=== PATIENT | male | born 1970 | race African-American/Black ===

== ENCOUNTER 2018-01-08 04:13 | Emergency (ER) | payer MEDICAID ==
[~2018-01-08] VITALS: Ht 188 cm; Wt 91.0 kg
[2018-01-08 05:53] LABS: BASOPHILS % 0.7 % (0.0-2.0); EOSINOPHILS % 0.6 % (0.0-5.0); HEMATOCRIT. 36.9 % (42.0-52.0); LYMPHOCYTES % 14.7 % (20.0-50.0); MEAN CORPUSCULAR HEMOGLOBIN 30.3 pg (28.0-32.0); MEAN CORPUSCULAR VOLUME 92.8 fL (80.0-94.0); MEAN PLATELET VOLUME 7.1 fl (7.4-10.4); MONOCYTES % 7.3 % (2.0-8.0); NEUTROPHILS % 76.7 % (40.0-76.0); PLATELET 462 x1000/uL (130-400); RED BLOOD CELL COUNT 3.97 mill/uL (4.7-6.1); RED CELL DISTRIBUTION WIDTH 13.7 % (11.6-14.6)
[2018-01-08 06:06] LABS: CHLORIDE 105 mEq/L (98-107)
[2018-01-08] MEDS ORDERED: KETOROLAC 60MG/2ML VIAL IM ONE (06:45)
[2018-01-08 07:10] VITALS: BP 139/77
[2018-01-10] MEDS ORDERED: ACET650S25 GT (03:46)
[2018-01-10] MEDS ORDERED: ELVI1TAB3 (03:46)
[2018-01-10] MEDS ORDERED: FLUO20TA29 (03:46)
[2018-01-10] MEDS ORDERED: GABA-290 PO (03:46)
[2018-01-10] MEDS ORDERED: HYDR-4009 PO (03:46)
[2018-01-11] MEDS ORDERED: GABA800T97 PO (19:58)
== END 2018-01-08 08:31 | disposition home or self-care (01) ==
LOC: ER 04:13
DX: S52.024A Nondisplaced fracture of olecranon process without intraarticular extension of right ulna, initial encounter for closed fracture (principal); M25.421 Effusion, right elbow; M25.532 Pain in left wrist; M19.90 Unspecified osteoarthritis, unspecified site; F32.9 Major depressive disorder, single episode, unspecified; F17.200 Nicotine dependence, unspecified, uncomplicated; M18.9 Osteoarthritis of first carpometacarpal joint, unspecified; X58.XXXA Exposure to other specified factors, initial encounter; Y93.89 Activity, other specified; Y92.098 Other place in other non-institutional residence as the place of occurrence of the external cause
CPT/HCPCS: 29105; 36415; 73080; 73110; 80053; 84550; 85025; 85651; 96372; 99285; J1885; Z7610; A4565

== ENCOUNTER 2018-02-08 15:27 | Emergency (ER) | payer MEDICAID ==
[~2018-02-08] VITALS: Ht 188 cm; Wt 80.0 kg
[~2018-02-08 15:27] MED LIST: ACET650S25 GT; ELVI1TAB3; FLUO20TA29; GABA800T97 PO; HYDR-4009 PO
[2018-02-08 15:48] VITALS: BP 134/87
[2018-02-08 16:21] LABS: CLARITY URINE CLEAR (CLEAR); COLOR URINE YELLOW (YELLOW); KETONES URINE NEGATIVE (NEGATIVE); LEUKOCYTE ESTERASE URINE NEGATIVE (NEGATIVE); NITRITE URINE NEGATIVE (NEGATIVE); OCCULT BLOOD URINE NEGATIVE (NEGATIVE); PROTEIN URINE NEGATIVE (NEGATIVE); SPECIFIC GRAVITY URINE 1.018 (1.005-1.030)
== END 2018-02-08 20:05 | disposition left against medical advice (07) ==
LOC: ER 16:24
DX: R42 Dizziness and giddiness (principal); R53.1 Weakness; F17.200 Nicotine dependence, unspecified, uncomplicated; F32.9 Major depressive disorder, single episode, unspecified
CPT/HCPCS: 81003; 99283

== ENCOUNTER 2019-04-10 16:59 | Inpatient (IN) | payer MEDICAID ==
[~2019-04-10] VITALS: Ht 188 cm; Wt 89.9 kg
[2019-04-10] MEDS ORDERED: SODIUM CHLORIDE 0.9% 1,000 ML IV ONE (19:03)
[2019-04-10] MEDS ORDERED: KETOROLAC 30MG/ML VIAL IV STA (19:03)
[2019-04-10] MEDS ORDERED: ONDANSETRON HCL 4MG/2ML INJ IV STA (19:03)
[2019-04-10] MEDS ORDERED: MORPHINE SULFATE 4 MG/ML CPJ (NOT FOR IM USE) IV STA (19:03)
[2019-04-10] MEDS ORDERED: PIPERACILLIN/TAZ 3.375G PREMIX 50 ML IV ONE (19:15)
[2019-04-10] MEDS ORDERED: VANCOMYCIN 1 G PREMIX 200 ML IV ONE (19:15)
[2019-04-10 19:41] LABS: BASOPHILS % 2.3 % (0.0-2.0); EOSINOPHILS % 5.3 % (0.0-5.0); HEMATOCRIT. 41.8 % (42.0-52.0); HEMOGLOBIN. 13.7 g/dL (14.0-18.0); MEAN CORPUSCULAR HEMOGLOBIN 29.8 pg (28.0-32.0); MEAN CORPUSCULAR VOLUME 90.4 fL (80.0-94.0); MEAN PLATELET VOLUME 7.7 fl (7.4-10.4); MONOCYTES % 7.7 % (2.0-8.0); NEUTROPHILS % 39.7 % (40.0-76.0); PLATELET 354 x1000/uL (130-400); RED BLOOD CELL COUNT 4.62 mill/uL (4.7-6.1); RED CELL DISTRIBUTION WIDTH 13.2 % (11.6-14.6)
[2019-04-10 19:46] LABS: CHLORIDE 107 mEq/L (98-107)
[2019-04-10 19:48] LABS: PROTHROMBIN TIME 10.2 sec (9.6-11.0)
[2019-04-10] MEDS ORDERED: DEXAMETHASONE 10 MG/ML VIAL IV ONE (21:30)
[2019-04-10] MEDS ORDERED: HYDROCODONE/ACETAMINOPHEN 5/325MG TABLET PO PRN (21:45)
[2019-04-10] MEDS ORDERED: ONDANSETRON HCL 4MG/2ML INJ IV PRN (21:45)
[2019-04-10] MEDS ORDERED: ACETAMINOPHEN 325MG TABLET PO PRN (21:45)
[2019-04-10] MEDS ORDERED: CLONIDINE 0.1MG TABLET PO PRN (21:45)
[2019-04-11 02:26] LABS: CLARITY URINE CLEAR (CLEAR); COLOR URINE YELLOW (YELLOW); KETONES URINE NEGATIVE (NEGATIVE); LEUKOCYTE ESTERASE URINE NEGATIVE (NEGATIVE); NITRITE URINE NEGATIVE (NEGATIVE); OCCULT BLOOD URINE NEGATIVE (NEGATIVE); PH URINE 6.5 (4.5-8.0); PROTEIN URINE NEGATIVE (NEGATIVE); SPECIFIC GRAVITY URINE 1.021 (1.005-1.030)
[2019-04-11 02:40] LABS: *AMPHETAMINES SCREEN URINE NEGATIVE (NEGATIVE); *BARBITURATES SCREEN URINE NEGATIVE (NEGATIVE)
[2019-04-11 02:41] LABS: *BENZODIAZEPINES SCREEN URINE NEGATIVE (NEGATIVE); *COCAINE SCREEN URINE NEGATIVE (NEGATIVE); OPIATES URINE SCREEN PRESUMTIVE POSITIVE (NEGATIVE); PHENCYCLIDINE URINE SCREEN NEGATIVE (NEGATIVE)
[2019-04-11 02:42] LABS: CANNABINOID URINE SCREEN NEGATIVE (NEGATIVE)
[2019-04-11 02:49] LABS: METHADONE URINE SCREEN NEGATIVE (NEGATIVE)
[2019-04-11] MEDS ORDERED: PIPERACILLIN/TAZ 3.375G PREMIX 50 ML IV SCH ×2 (05:00→14:00)
[2019-04-11] MEDS ORDERED: MORPHINE SULFATE 2 MG/ML CPJ (NOT FOR IM USE) IV PRN (05:03)
[2019-04-11 05:12] LABS: BASOPHILS % 0.4 % (0.0-2.0); EOSINOPHILS % 0.2 % (0.0-5.0); HEMATOCRIT. 40.7 % (42.0-52.0); HEMOGLOBIN. 13.5 g/dL (14.0-18.0); LYMPHOCYTES % 19.2 % (20.0-50.0); MEAN CORPUSCULAR VOLUME 90.3 fL (80.0-94.0); MEAN PLATELET VOLUME 7.3 fl (7.4-10.4); MONOCYTES % 0.7 % (2.0-8.0); NEUTROPHILS % 79.5 % (40.0-76.0); PLATELET 336 x1000/uL (130-400); RED CELL DISTRIBUTION WIDTH 12.9 % (11.6-14.6)
[2019-04-11 05:17] LABS: CHLORIDE 109 mEq/L (98-107)
[2019-04-11 10:00] VITALS: BP 152/72
[2019-04-11] MEDS: HYDROCODONE/ACETAMINOPHEN 10/325MG TABLET PO PRN (10:30)
[2019-04-11] MEDS: VANCOMYCIN 1500MG in DEXTROSE 5% WATER 250ML IV SCH ×2 (11:03→18:14)
[2019-04-11 12:00] VITALS: BP 173/93
[2019-04-11] MEDS ORDERED: GABA-290 MT (12:00)
[2019-04-11] MEDS ORDERED: ZOLP5TAB8 MT (12:00)
[2019-04-11] MEDS ORDERED: FURO-151 MT (12:00)
[2019-04-11] MEDS ORDERED: AMLO2.5T45 MT (12:00)
[2019-04-11] MEDS ORDERED: TIZA4CAP6 MT (12:01)
[2019-04-11] MEDS ORDERED: HYDR12.54 MT (12:03)
[2019-04-11] MEDS: TIZANIDINE HCL 4MG TABLET PO PRN (13:13)
[2019-04-11] MEDS ORDERED: MEDICATION NOT ON FORMULARY EA (Amlodipine Besylate 1 TAB) MT SCH (14:15)
[2019-04-11] MEDS ORDERED: GABAPENTIN MT SCH (14:15)
[2019-04-11] MEDS ORDERED: MEDICATION NOT ON FORMULARY EA (Furosemide (Lasix) 1 TAB) MT SCH (14:15)
[2019-04-11] MEDS ORDERED: MEDICATION NOT ON FORMULARY EA (Zolpidem Tartrate 1 TAB) MT PRN (14:15)
[2019-04-11] MEDS ORDERED: LORAZEPAM 2MG/ML CPJ IV NR (14:15)
[2019-04-11] MEDS ORDERED: MEDICATION NOT ON FORMULARY EA (Hydrochlorothiazide 1 TAB) MT SCH (14:15)
[2019-04-11] MEDS ORDERED: MORPHINE SULFATE 4 MG/ML CPJ (NOT FOR IM USE) IV PRN (14:30)
[2019-04-11] MEDS ORDERED: AMLODIPINE 2.5MG TABLET PO SCH (14:30)
[2019-04-11] MEDS: HYDROCHLOROTHIAZIDE 12.5MG CAPSULE PO SCH (15:15)
[2019-04-11 16:00] VITALS: BP 128/69
[2019-04-11] MEDS: FUROSEMIDE 40MG TABLET PO SCH (16:00)
[2019-04-11] MEDS: PIPERACILLIN/TAZ 3.375G PREMIX 50 ML IV SCH ×2 (17:32→20:22)
[2019-04-11] MEDS: GABAPENTIN 300MG CAPSULE PO SCH (17:57)
[2019-04-11] MEDS: NICOTINE 21MG PATCH TD SCH (18:16)
[2019-04-11 20:00] VITALS: BP 133/74
[2019-04-11] MEDS: AMLODIPINE 5MG TABLET PO SCH (20:23)
[2019-04-11] MEDS: GENVOYA PO SCH (20:32)
[2019-04-11] MEDS: COBICISTAT PO SCH (20:32)
[2019-04-11] MEDS: EMTRICITABINE PO SCH (20:32)
[2019-04-11] MEDS: TENOFOVIR PO SCH (20:32)
[2019-04-11] MEDS ORDERED: ZOLPIDEM TARTRATE 5MG TABLET PO PRN ×2 (21:00)
[2019-04-11] MEDS: MORPHINE SULFATE 4 MG/ML CPJ (NOT FOR IM USE) IV PRN (21:08)
[2019-04-12] VITALS: BP 130/67
[2019-04-12] MEDS: HYDROCODONE/ACETAMINOPHEN 10/325MG TABLET PO PRN ×3 (00:29→14:39)
[2019-04-12] MEDS: VANCOMYCIN 1500MG in DEXTROSE 5% WATER 250ML IV SCH ×3 (01:25→09:00)
[2019-04-12] MEDS: PIPERACILLIN/TAZ 3.375G PREMIX 50 ML IV SCH ×3 (03:45→08:08)
[2019-04-12] MEDS: MORPHINE SULFATE 4 MG/ML CPJ (NOT FOR IM USE) IV PRN ×3 (03:46→13:02)
[2019-04-12 04:00] VITALS: BP 112/58
[2019-04-12] MEDS: TIZANIDINE HCL 4MG TABLET PO PRN (05:41)
[2019-04-12 06:20] LABS: BASOPHILS % 0.1 % (0.0-2.0); EOSINOPHILS % 0.3 % (0.0-5.0); HEMOGLOBIN. 13.1 g/dL (14.0-18.0); LYMPHOCYTES % 18.3 % (20.0-50.0); MEAN CORPUSCULAR HEMOGLOBIN 29.6 pg (28.0-32.0); MEAN CORPUSCULAR VOLUME 90.6 fL (80.0-94.0); MEAN PLATELET VOLUME 8.1 fl (7.4-10.4); MONOCYTES % 5.3 % (2.0-8.0); PLATELET 365 x1000/uL (130-400); RED BLOOD CELL COUNT 4.42 mill/uL (4.7-6.1); RED CELL DISTRIBUTION WIDTH 13.1 % (11.6-14.6)
[2019-04-12 06:26] LABS: CHLORIDE 106 mEq/L (98-107)
[2019-04-12 08:00] VITALS: BP 118/70
[2019-04-12] MEDS: NICOTINE 21MG PATCH TD SCH (08:07)
[2019-04-12] MEDS: FUROSEMIDE 40MG TABLET PO SCH (08:07)
[2019-04-12] MEDS: HYDROCHLOROTHIAZIDE 12.5MG CAPSULE PO SCH (08:07)
[2019-04-12] MEDS: GABAPENTIN 300MG CAPSULE PO SCH ×2 (08:07→14:32)
[2019-04-12] MEDS: TENOFOVIR PO SCH (08:08)
[2019-04-12] MEDS: EMTRICITABINE PO SCH (08:08)
[2019-04-12] MEDS: AMLODIPINE 5MG TABLET PO SCH (08:08)
[2019-04-12] MEDS: GENVOYA PO SCH (08:08)
[2019-04-12] MEDS: COBICISTAT PO SCH (08:08)
[2019-04-12] MEDS ORDERED: NON FORMULARY PATIENT HOME MED PO SCH (09:00)
[2019-04-12] MEDS ORDERED: MEDICATION NOT ON FORMULARY EA (Hydrocodone Bit/Acetaminophen (Hydrocodon-Acetaminophn 1 PO SCH (09:00)
[2019-04-12] MEDS ORDERED: TIZANIDINE HCL MT SCH (09:00)
[2019-04-12 09:06] LABS: % CD 4 POS. LYMPHOCYTES 17.3 % (30.8-58.5); % CD 8 POS. LYMPH 46.3 % (12.0-35.5); ABSOLUTE CD 3 732 /uL (622-2402); ABSOLUTE CD 4 HELPER 208 /uL (359-1519); ABSOLUTE CD 8 SUPPRESSOR 556 /uL (109-897); ABSOLUTE LYMPHOCYTES 1.2 x10E3/uL (0.7-3.1); ABSOLUTE NEUTROPHILS 4.7 x10E3/uL (1.4-7.0); BASOPHILS 0 % (Not Estab.); CD4/CD8 RATIO 0.37 (0.92-3.72); HEMATOCRIT 41.3 % (37.5-51.0); HEMOGLOBIN 13.5 g/dL (13.0-17.7); IMMATURE GRANULOCYTES 0 % (Not Estab.); LYMPHOCYTES 20 % (Not Estab.); MEAN CORPUSCULAR HEMOGLOBIN 29.9 pg (26.6-33.0); MEAN CORPUSCULAR HGB CONC. 32.7 g/dL (31.5-35.7); MEAN CORPUSCULAR VOLUME 92 fL (79-97); MONOCYTES 1 % (Not Estab.); NEUTROPHILS 79 % (Not Estab.); PLATELETS 367 x10E3/uL (150-379); RBC 4.51 x10E6/uL (4.14-5.80); RED CELL DISTRIBUTION WIDTH 12.9 % (12.3-15.4)
[2019-04-12 12:00] VITALS: BP 103/73
[2019-04-12] MEDS ORDERED: VANCOMYCIN 1 G PREMIX 200 ML IV SCH (14:00)
[2019-04-12 14:59] VITALS: BP 103/73
== END 2019-04-12 15:00 | disposition home or self-care (01) | DRG 347 ==
LOC: ER 17:28 → 5WST 21:21 → EDBEDREQTM 21:28 → EDBEDREQ 21:28 → EDBEDREQSVC 21:29 → ENRESERV 04-11 07:31
PROVIDERS: ADMIT Internal Medicine; ATTEND Internal Medicine
DX: M48.061 Spinal stenosis, lumbar region without neurogenic claudication (principal); B20 Human immunodeficiency virus [HIV] disease; M46.26 Osteomyelitis of vertebra, lumbar region; R65.10 Systemic inflammatory response syndrome (SIRS) of non-infectious origin without acute organ dysfunction; M48.02 Spinal stenosis, cervical region; G62.9 Polyneuropathy, unspecified; M48.04 Spinal stenosis, thoracic region; M51.27 Other intervertebral disc displacement, lumbosacral region; M51.36 Other intervertebral disc degeneration, lumbar region; F32.9 Major depressive disorder, single episode, unspecified; M19.90 Unspecified osteoarthritis, unspecified site; I10 Essential (primary) hypertension; M51.26 Other intervertebral disc displacement, lumbar region; F17.210 Nicotine dependence, cigarettes, uncomplicated
CPT/HCPCS: 36415; 71045; 72148; 80048; 80202; 80305; 83605; 84145; 84484; 85651; 86359; 86360; 93005; 96365; 96367; 96375; 96376; 97162; 99285; J1100; J1885; J2060; J2270; J2405; J2543; J3370; J7030; J7040; J7060

== ENCOUNTER 2019-10-08 17:25 | Emergency (ER) | payer MEDICAID ==
[~2019-10-08] VITALS: Ht 188 cm; Wt 89.0 kg
[~2019-10-08 17:25] MED LIST changes: -ACET650S25 GT; +AMLO2.5T45 MT; -FLUO20TA29; +FURO-151 MT; +GABA800T97 MT; -GABA800T97 PO; +HYDR12.54 MT; +IBUP-1653 PO; +PROSOL IH; +TIZA4CAP6 MT; +ZOLP5TAB8 MT
[2019-10-08] MEDS ORDERED: KETOROLAC 60MG/2ML VIAL IM ONE (18:30)
[2019-10-08 18:45] VITALS: BP 132/63
== END 2019-10-08 18:46 | disposition home or self-care (01) ==
LOC: ER 17:25
DX: M54.5 Low back pain (principal)
CPT/HCPCS: 96372; 99283; J1885; Z7610

== ENCOUNTER 2019-10-30 10:10 | Inpatient (IN) | payer MEDICAID ==
[~2019-10-30] VITALS: Ht 188 cm; Wt 87.1 kg
[2019-10-30 13:13] LABS: BASOPHILS % 1.9 % (0.0-2.0); EOSINOPHILS % 3.4 % (0.0-5.0); HEMATOCRIT. 41.4 % (42.0-52.0); LYMPHOCYTES % 28.4 % (20.0-50.0); MEAN CORPUSCULAR HEMOGLOBIN 30.2 pg (28.0-32.0); MEAN CORPUSCULAR VOLUME 89.3 fL (80.0-94.0); MEAN PLATELET VOLUME 7.5 fl (7.4-10.4); MONOCYTES % 7.2 % (2.0-8.0); NEUTROPHILS % 59.1 % (40.0-76.0); PLATELET 376 x1000/uL (130-400); RED BLOOD CELL COUNT 4.63 mill/uL (4.7-6.1); RED CELL DISTRIBUTION WIDTH 14.4 % (11.6-14.6)
[2019-10-30 13:17] LABS: CHLORIDE 98 mEq/L (98-107)
[2019-10-30] MEDS ORDERED: HYDROCODONE/ACETAMINOPHEN 5/325MG TABLET PO ONE (14:00)
[2019-10-30] MEDS ORDERED: GADOBENATE DIMEGLUMINE 529 MG/ML 10ML IV ONE (15:06)
[2019-10-30 15:43] LABS: PROTHROMBIN TIME 10.7 sec (9.6-11.0)
[2019-10-30 16:19] LABS: CLARITY URINE CLEAR (CLEAR); COLOR URINE YELLOW (YELLOW); KETONES URINE TRACE (NEGATIVE); LEUKOCYTE ESTERASE URINE NEGATIVE (NEGATIVE); NITRITE URINE NEGATIVE (NEGATIVE); OCCULT BLOOD URINE NEGATIVE (NEGATIVE); PH URINE 6.5 (4.5-8.0); PROTEIN URINE NEGATIVE (NEGATIVE)
[2019-10-30] MEDS ORDERED: ACETAMINOPHEN 325MG TABLET PO PRN (16:30)
[2019-10-30] MEDS ORDERED: IPRATROPIUM/ALBUTEROL 0.5-3(2.5)MG/3ML NEB HHN PRN (16:30)
[2019-10-30] MEDS ORDERED: ONDANSETRON HCL 4MG/2ML INJ IV PRN (16:30)
[2019-10-30] MEDS ORDERED: CLONIDINE 0.1MG TABLET PO PRN (16:30)
[2019-10-30] MEDS ORDERED: GUAIFENESIN 200MG/10ML SUGAR FREE UDC PO PRN (16:30)
[2019-10-30 16:46] LABS: PHOSPHORUS 2.6 mg/dL (2.5-4.9)
[2019-10-30] MEDS ORDERED: DEXT 5%/LACTATED RINGERS 1,000 ML IV SCH (17:45)
[2019-10-30 20:00] VITALS: BP 129/70
[2019-10-30 20:57] VITALS: BP 125/70
[2019-10-30] MEDS ORDERED: POTASSIUM CHLORIDE 20MEQ/PACKET PO NR (21:00)
[2019-10-30] MEDS: DIPHENHYDRAMINE 50MG/ML VIAL IV PRN (21:54)
[2019-10-30] MEDS: MORPHINE SULFATE 2 MG/ML CPJ (NOT FOR IM USE) IV PRN (22:04)
[2019-10-30] MEDS: DEXAMETHASONE 4MG/ML 1ML VIAL IV SCH (23:39)
[2019-10-31] VITALS (12 sets, daily range): BP systolic 107–137; BP diastolic 54–85
[2019-10-31] MEDS: MORPHINE SULFATE 2 MG/ML CPJ (NOT FOR IM USE) IV PRN ×2 (03:26→08:10)
[2019-10-31] MEDS: DEXAMETHASONE 4MG/ML 1ML VIAL IV SCH ×3 (05:10→23:20)
[2019-10-31 06:41] LABS: BASOPHILS % 0.1 % (0.0-2.0); EOSINOPHILS % 0.2 % (0.0-5.0); HEMATOCRIT. 39.8 % (42.0-52.0); HEMOGLOBIN. 13.3 g/dL (14.0-18.0); LYMPHOCYTES % 15.8 % (20.0-50.0); MEAN CORPUSCULAR HEMOGLOBIN 29.8 pg (28.0-32.0); MEAN CORPUSCULAR VOLUME 89.3 fL (80.0-94.0); MEAN PLATELET VOLUME 8.1 fl (7.4-10.4); MONOCYTES % 2.5 % (2.0-8.0); NEUTROPHILS % 81.4 % (40.0-76.0); PLATELET 376 x1000/uL (130-400); RED BLOOD CELL COUNT 4.46 mill/uL (4.7-6.1); RED CELL DISTRIBUTION WIDTH 14.3 % (11.6-14.6)
[2019-10-31] MEDS ORDERED: NORMAL SALINE 0.9% 10 ML SYR ONE (07:19)
[2019-10-31] MEDS ORDERED: BACITRACIN 15GM TUBE TOP ONE (07:19)
[2019-10-31] MEDS ORDERED: THROMBIN (BOVINE) 5000 UNITS/VIAL TOP ONE (07:20)
[2019-10-31] MEDS ORDERED: SODIUM CHLORIDE 0.9% IRRIG SOL 2,000 ML IR ONE (07:20)
[2019-10-31] MEDS ORDERED: BACITRACIN 50,000 UNITS/VIAL ONE (07:20)
[2019-10-31] MEDS ORDERED: LIDOCAINE HCL/EPINEPHRINE 1%-EPI 1:100,000 20 ML VIAL ONE (07:20)
[2019-10-31] MEDS ORDERED: PROPOFOL 200MG/20ML VIAL IV ONE (08:02)
[2019-10-31] MEDS ORDERED: LIDOCAINE HCL 1% 20ML VIAL (Pyxis) INJ ONE ×2 (08:02→08:15)
[2019-10-31] MEDS ORDERED: FENTANYL CITRATE/PF 50MCG/ML 2ML VIAL ONE ×2 (08:02→10:23)
[2019-10-31] MEDS ORDERED: ROCURONIUM BROMIDE 10MG/ML VIAL 5ML IV ONE ×2 (08:02→10:19)
[2019-10-31] MEDS ORDERED: MIDAZOLAM HCL 2 MG/2 ML VIAL ONE (08:02)
[2019-10-31 08:04] LABS: CHLORIDE 105 mEq/L (98-107)
[2019-10-31] MEDS ORDERED: CEFAZOLIN SODIUM 1000MG/VIAL ONE (08:10)
[2019-10-31] MEDS ORDERED: EPHEDRINE SULFATE 50MG/ML VIAL ONE (08:10)
[2019-10-31] MEDS ORDERED: PHENYLEPHRINE HCL 10 MG/ML 1ML (IV VIAL) IV ONE (08:10)
[2019-10-31] MEDS ORDERED: SODIUM CHLORIDE 0.9% 10ML VIAL ONE ×2 (08:10→08:12)
[2019-10-31 08:11] LABS: LDL CHOLESTEROL 96 mg/dL (5-100)
[2019-10-31 08:12] LABS: HDL CHOLESTEROL 24 mg/dL (40-59)
[2019-10-31] MEDS ORDERED: ALBUTEROL 90MCG/PUFF 17GM INHALER INH ONE (08:27)
[2019-10-31] MEDS ORDERED: MORPHINE SULFATE 4 MG/ML CPJ (NOT FOR IM USE) IV PRN (09:30)
[2019-10-31] MEDS ORDERED: NICARDIPINE 100 MG in SODIUM CHLORIDE 0.9% 60 ML IV PRN (09:30)
[2019-10-31] MEDS ORDERED: GLYCOPYRROLATE 0.2 MG/ML 2ML VIAL ONE (10:19)
[2019-10-31] MEDS ORDERED: ONDANSETRON HCL 4MG/2ML INJ ONE (10:33)
[2019-10-31] MEDS ORDERED: HYDROMORPHONE HCL/PF 2MG/ML (OR) ONE (12:20)
[2019-10-31] MEDS ORDERED: DIPHENHYDRAMINE INJ IV PRN (13:45)
[2019-10-31] MEDS ORDERED: MORPHINE PCA 50MG/50ML IV PRN (13:45)
[2019-10-31] MEDS ORDERED: NALOXONE INJ IV PRN (13:45)
[2019-10-31] MEDS ORDERED: CEFAZOLIN SODIUM 1000MG/VIAL IV SCH (14:00)
[2019-10-31] MEDS ORDERED: ONDANSETRON INJ IV PRN (14:00)
[2019-10-31] MEDS ORDERED: HYDROMORPHONE HCL/PF 2MG/ML CPJ IV PRN (15:00)
[2019-10-31] MEDS ORDERED: ONDANSETRON HCL 4MG/2ML INJ IV PRN (15:00)
[2019-10-31] MEDS: CEFAZOLIN 1000MG PREMIX 50 ML IV SCH (18:00)
[2019-10-31] MEDS ORDERED: NICARDIPINE 50 MG in SODIUM CHLORIDE 0.9% 230 ML IV PRN (18:00)
[2019-10-31] MEDS ORDERED: DEXT 5%/LACTATED RINGERS 1,000 ML IV SCH (18:15)
[2019-10-31] MEDS ORDERED: NITROPRUSSIDE 50 MG in SODIUM CHLORIDE 0.9% 250 ML IV PRN (18:45)
[2019-10-31] MEDS: DEXT 5%/LACTATED RINGERS 1,000 ML IV SCH (19:09)
[2019-10-31] MEDS: FUROSEMIDE 40MG TABLET PO SCH (20:48)
[2019-10-31] MEDS: HYDROCHLOROTHIAZIDE 12.5MG CAPSULE PO SCH (21:51)
[2019-10-31] MEDS: GABAPENTIN 400MG CAPSULE PO SCH (21:51)
[2019-10-31] MEDS: ZOLPIDEM TARTRATE 5MG TABLET PO PRN (23:20)
[2019-11-01] VITALS (31 sets, daily range): BP systolic 76–145; BP diastolic 63–88
[2019-11-01] MEDS: CEFAZOLIN 1000MG PREMIX 50 ML IV SCH (02:07)
[2019-11-01] MEDS: DEXT 5%/LACTATED RINGERS 1,000 ML IV SCH ×5 (04:45→23:26)
[2019-11-01] MEDS: DEXAMETHASONE 4MG/ML 1ML VIAL IV SCH ×4 (05:19→23:26)
[2019-11-01] MEDS: GABAPENTIN 400MG CAPSULE PO SCH ×3 (07:22→22:17)
[2019-11-01] MEDS ORDERED: EMTRICITABINE 200MG CAPSULE PO SCH (09:00)
[2019-11-01] MEDS: FUROSEMIDE 40MG TABLET PO SCH (09:33)
[2019-11-01] MEDS: HYDROCHLOROTHIAZIDE 12.5MG CAPSULE PO SCH (09:33)
[2019-11-01] MEDS: DOCUSATE SODIUM 100MG CAPSULE PO PRN (22:25)
[2019-11-01] MEDS: ZOLPIDEM TARTRATE 5MG TABLET PO PRN (23:37)
[2019-11-02] VITALS: BP 105/70
[2019-11-02 04:00] VITALS: BP 121/79
[2019-11-02] MEDS: GABAPENTIN 400MG CAPSULE PO SCH ×3 (06:03→21:53)
[2019-11-02] MEDS: DEXAMETHASONE 4MG/ML 1ML VIAL IV SCH (06:03)
[2019-11-02 07:45] LABS: BASOPHILS % 0.1 % (0.0-2.0); HEMATOCRIT. 31.2 % (42.0-52.0); HEMOGLOBIN. 10.2 g/dL (14.0-18.0); LYMPHOCYTES % 13.7 % (20.0-50.0); MEAN CORPUSCULAR HEMOGLOBIN 29.1 pg (28.0-32.0); MEAN PLATELET VOLUME 7.4 fl (7.4-10.4); MONOCYTES % 5.8 % (2.0-8.0); NEUTROPHILS % 80.4 % (40.0-76.0); PLATELET 406 x1000/uL (130-400); RED BLOOD CELL COUNT 3.51 mill/uL (4.7-6.1); RED CELL DISTRIBUTION WIDTH 13.9 % (11.6-14.6)
[2019-11-02 08:00] VITALS: BP 149/89
[2019-11-02 08:08] LABS: CHLORIDE 102 mEq/L (98-107)
[2019-11-02] MEDS: HYDROCHLOROTHIAZIDE 12.5MG CAPSULE PO SCH (09:07)
[2019-11-02] MEDS: FUROSEMIDE 40MG TABLET PO SCH (09:07)
[2019-11-02 12:00] VITALS: BP 152/92
[2019-11-02 16:00] VITALS: BP 148/96
[2019-11-02] MEDS: DOCUSATE SODIUM 100MG CAPSULE PO PRN (17:46)
[2019-11-02] MEDS: DEXT 5%/LACTATED RINGERS 1,000 ML IV SCH (18:21)
[2019-11-02 20:00] VITALS: BP 136/84
[2019-11-02] MEDS: ZOLPIDEM TARTRATE 5MG TABLET PO PRN (21:52)
[2019-11-02] MEDS: GENVOYA PO SCH (21:53)
[2019-11-02] MEDS: COBICISTAT PO SCH (21:53)
[2019-11-02] MEDS: TENOFOVIR PO SCH (21:53)
[2019-11-02] MEDS: EMTRICITABINE PO SCH (21:53)
[2019-11-03] VITALS: BP 120/81
[2019-11-03] MEDS: DEXT 5%/LACTATED RINGERS 1,000 ML IV SCH ×3 (01:49→18:12)
[2019-11-03 04:00] VITALS: BP 130/80
[2019-11-03] MEDS: GABAPENTIN 400MG CAPSULE PO SCH ×3 (05:32→22:23)
[2019-11-03] MEDS: DOCUSATE SODIUM 100MG CAPSULE PO PRN (05:40)
[2019-11-03 08:00] VITALS: BP 118/71
[2019-11-03 08:16] LABS: BASOPHILS % 0.2 % (0.0-2.0); EOSINOPHILS % 0.7 % (0.0-5.0); HEMATOCRIT. 30.8 % (42.0-52.0); HEMOGLOBIN. 10.1 g/dL (14.0-18.0); MEAN CORPUSCULAR HEMOGLOBIN 29.1 pg (28.0-32.0); MEAN CORPUSCULAR VOLUME 89.2 fL (80.0-94.0); MEAN PLATELET VOLUME 7.8 fl (7.4-10.4); MONOCYTES % 7.2 % (2.0-8.0); NEUTROPHILS % 60.9 % (40.0-76.0); PLATELET 421 x1000/uL (130-400); RED BLOOD CELL COUNT 3.45 mill/uL (4.7-6.1)
[2019-11-03 08:35] LABS: CHLORIDE 101 mEq/L (98-107)
[2019-11-03] MEDS: FUROSEMIDE 40MG TABLET PO SCH (09:25)
[2019-11-03] MEDS: HYDROCHLOROTHIAZIDE 12.5MG CAPSULE PO SCH (09:25)
[2019-11-03] MEDS: COBICISTAT PO SCH (09:26)
[2019-11-03] MEDS: TENOFOVIR PO SCH (09:26)
[2019-11-03] MEDS: EMTRICITABINE PO SCH (09:26)
[2019-11-03] MEDS: GENVOYA PO SCH (09:26)
[2019-11-03] MEDS ORDERED: POTASSIUM CHLORIDE 20MEQ TABLET SR PO NR (09:30)
[2019-11-03] MEDS ORDERED: POLYETHYLENE GLYCOL 3350 (17GM) 1 DOSE PACK PO PRN (11:45)
[2019-11-03] MEDS ORDERED: NA PHOS,M-B/NA PHOS,DI-BA ENEMA 118ML PR PRN (11:45)
[2019-11-03 12:00] VITALS: BP 117/76
[2019-11-03] MEDS ORDERED: HYDROCODONE/ACETAMINOPHEN 5/325MG TABLET PO PRN (13:15)
[2019-11-03] MEDS: HYDROMORPHONE HCL/PF 2MG/ML CPJ IV PRN ×3 (14:22→21:11)
[2019-11-03 16:00] VITALS: BP 124/81
[2019-11-03] MEDS: DOCUSATE SODIUM 100MG CAPSULE PO SCH (18:11)
[2019-11-03 20:00] VITALS: BP 133/81
[2019-11-03] MEDS: ZOLPIDEM TARTRATE 5MG TABLET PO PRN (22:23)
[2019-11-04] VITALS: BP 133/93
[2019-11-04] MEDS: HYDROMORPHONE HCL/PF 2MG/ML CPJ IV PRN ×7 (00:16→22:32)
[2019-11-04 04:00] VITALS: BP 132/85
[2019-11-04] MEDS: GABAPENTIN 400MG CAPSULE PO SCH ×3 (05:24→21:08)
[2019-11-04 07:03] LABS: BASOPHILS % 0.2 % (0.0-2.0); EOSINOPHILS % 2.6 % (0.0-5.0); LYMPHOCYTES % 33.4 % (20.0-50.0); MEAN CORPUSCULAR HEMOGLOBIN 29.1 pg (28.0-32.0); MEAN CORPUSCULAR VOLUME 89.6 fL (80.0-94.0); MEAN PLATELET VOLUME 7.5 fl (7.4-10.4); MONOCYTES % 8.8 % (2.0-8.0); PLATELET 521 x1000/uL (130-400); RED CELL DISTRIBUTION WIDTH 14.3 % (11.6-14.6)
[2019-11-04 07:42] LABS: CHLORIDE 98 mEq/L (98-107)
[2019-11-04 08:00] VITALS: BP 133/60
[2019-11-04] MEDS ORDERED: POTASSIUM CHLORIDE 20MEQ TABLET SR PO NR (09:00)
[2019-11-04] MEDS: TENOFOVIR PO SCH (09:45)
[2019-11-04] MEDS: EMTRICITABINE PO SCH (09:45)
[2019-11-04] MEDS: COBICISTAT PO SCH (09:45)
[2019-11-04] MEDS: GENVOYA PO SCH (09:45)
[2019-11-04] MEDS: DOCUSATE SODIUM 100MG CAPSULE PO SCH ×2 (09:46→17:33)
[2019-11-04] MEDS: HYDROCHLOROTHIAZIDE 12.5MG CAPSULE PO SCH (09:46)
[2019-11-04] MEDS: FUROSEMIDE 40MG TABLET PO SCH (09:46)
[2019-11-04 12:00] VITALS: BP 119/78
[2019-11-04] MEDS ORDERED: NALOXONE HCL 0.4 MG/ML 1ML VIAL IV PRN (14:00)
[2019-11-04 16:00] VITALS: BP 121/78
[2019-11-04] MEDS: MINERAL OIL ENEMA 133ML PR PRN (17:40)
[2019-11-04 20:00] VITALS: BP 123/78
[2019-11-04] MEDS: HYDROCODONE/ACETAMINOPHEN 10/325MG TABLET PO PRN (20:29)
[2019-11-04] MEDS ORDERED: BISACODYL 5MG TABLET PO NR (21:00)
[2019-11-05] VITALS: BP 120/75
[2019-11-05] MEDS: HYDROMORPHONE HCL/PF 2MG/ML CPJ IV PRN ×5 (02:56→23:16)
[2019-11-05 04:00] VITALS: BP 112/80
[2019-11-05] MEDS: GABAPENTIN 400MG CAPSULE PO SCH ×3 (05:39→21:53)
[2019-11-05 08:00] VITALS: BP 122/87
[2019-11-05 08:21] LABS: CHLORIDE 96 mEq/L (98-107)
[2019-11-05 08:31] LABS: BASOPHILS % 0.4 % (0.0-2.0); EOSINOPHILS % 3.4 % (0.0-5.0); HEMATOCRIT. 34.2 % (42.0-52.0); HEMOGLOBIN. 11.3 g/dL (14.0-18.0); LYMPHOCYTES % 34.3 % (20.0-50.0); MEAN CORPUSCULAR HEMOGLOBIN 29.1 pg (28.0-32.0); MEAN PLATELET VOLUME 7.5 fl (7.4-10.4); MONOCYTES % 9.6 % (2.0-8.0); NEUTROPHILS % 52.3 % (40.0-76.0); PLATELET 591 x1000/uL (130-400); RED BLOOD CELL COUNT 3.89 mill/uL (4.7-6.1); RED CELL DISTRIBUTION WIDTH 14.2 % (11.6-14.6)
[2019-11-05] MEDS: DOCUSATE SODIUM 100MG CAPSULE PO SCH ×2 (08:38→17:40)
[2019-11-05] MEDS: HYDROCHLOROTHIAZIDE 12.5MG CAPSULE PO SCH (08:38)
[2019-11-05] MEDS: FUROSEMIDE 40MG TABLET PO SCH (08:39)
[2019-11-05] MEDS: COBICISTAT PO SCH (08:39)
[2019-11-05] MEDS: TENOFOVIR PO SCH (08:39)
[2019-11-05] MEDS: EMTRICITABINE PO SCH (08:39)
[2019-11-05] MEDS: GENVOYA PO SCH (08:39)
[2019-11-05] MEDS: POLYETHYLENE GLYCOL 3350 (17GM) 1 DOSE PACK PO SCH (09:00)
[2019-11-05 12:00] VITALS: BP 148/94
[2019-11-05] MEDS: HYDROCODONE/ACETAMINOPHEN 10/325MG TABLET PO PRN ×2 (12:27→18:44)
[2019-11-05 16:00] VITALS: BP 133/83
[2019-11-05 20:00] VITALS: BP 132/85
[2019-11-05] MEDS: DIPHENHYDRAMINE 50MG/ML VIAL IV PRN (21:53)
[2019-11-06] VITALS: BP 119/84
[2019-11-06] MEDS: HYDROCODONE/ACETAMINOPHEN 10/325MG TABLET PO PRN ×3 (02:05→17:24)
[2019-11-06 04:00] VITALS: BP 128/86
[2019-11-06] MEDS: HYDROMORPHONE HCL/PF 2MG/ML CPJ IV PRN ×4 (04:46→20:32)
[2019-11-06 07:31] LABS: CHLORIDE 94 mEq/L (98-107)
[2019-11-06 08:00] VITALS: BP 126/80
[2019-11-06 08:04] LABS: BASOPHILS % 0.4 % (0.0-2.0); EOSINOPHILS % 4.2 % (0.0-5.0); HEMATOCRIT. 33.7 % (42.0-52.0); HEMOGLOBIN. 11.3 g/dL (14.0-18.0); LYMPHOCYTES % 27.4 % (20.0-50.0); MEAN CORPUSCULAR HEMOGLOBIN 29.3 pg (28.0-32.0); MEAN CORPUSCULAR VOLUME 87.1 fL (80.0-94.0); MEAN PLATELET VOLUME 7.4 fl (7.4-10.4); MONOCYTES % 10.8 % (2.0-8.0); NEUTROPHILS % 57.2 % (40.0-76.0); PLATELET 605 x1000/uL (130-400); RED BLOOD CELL COUNT 3.87 mill/uL (4.7-6.1); RED CELL DISTRIBUTION WIDTH 14.2 % (11.6-14.6)
[2019-11-06] MEDS: POLYETHYLENE GLYCOL 3350 (17GM) 1 DOSE PACK PO SCH ×2 (09:00→21:19)
[2019-11-06] MEDS: FUROSEMIDE 40MG TABLET PO SCH (09:05)
[2019-11-06] MEDS: GABAPENTIN 400MG CAPSULE PO SCH ×3 (09:05→20:28)
[2019-11-06] MEDS: DOCUSATE SODIUM 100MG CAPSULE PO SCH ×2 (09:05→17:24)
[2019-11-06] MEDS: HYDROCHLOROTHIAZIDE 12.5MG CAPSULE PO SCH (09:05)
[2019-11-06] MEDS: COBICISTAT PO SCH (09:06)
[2019-11-06] MEDS: EMTRICITABINE PO SCH (09:06)
[2019-11-06] MEDS: GENVOYA PO SCH (09:06)
[2019-11-06] MEDS: TENOFOVIR PO SCH (09:06)
[2019-11-06 12:00] VITALS: BP 132/80
[2019-11-06 16:00] VITALS: BP 111/73
[2019-11-06 20:00] VITALS: BP 113/68
[2019-11-07] VITALS: BP 145/63
[2019-11-07] MEDS: HYDROCODONE/ACETAMINOPHEN 10/325MG TABLET PO PRN ×2 (00:35→07:14)
[2019-11-07] MEDS: HYDROMORPHONE HCL/PF 2MG/ML CPJ IV PRN ×2 (02:46→08:24)
[2019-11-07 04:00] VITALS: BP 117/75
[2019-11-07] MEDS: GABAPENTIN 400MG CAPSULE PO SCH (06:53)
[2019-11-07 07:23] LABS: BASOPHILS % 0.8 % (0.0-2.0); EOSINOPHILS % 3.6 % (0.0-5.0); HEMATOCRIT. 35.5 % (42.0-52.0); HEMOGLOBIN. 11.8 g/dL (14.0-18.0); LYMPHOCYTES % 31.3 % (20.0-50.0); MEAN CORPUSCULAR HEMOGLOBIN 29.4 pg (28.0-32.0); MEAN CORPUSCULAR VOLUME 88.3 fL (80.0-94.0); MEAN PLATELET VOLUME 7.2 fl (7.4-10.4); MONOCYTES % 13.5 % (2.0-8.0); NEUTROPHILS % 50.8 % (40.0-76.0); PLATELET 593 x1000/uL (130-400); RED BLOOD CELL COUNT 4.02 mill/uL (4.7-6.1); RED CELL DISTRIBUTION WIDTH 14.5 % (11.6-14.6)
[2019-11-07 07:57] LABS: CHLORIDE 92 mEq/L (98-107)
[2019-11-07 08:00] VITALS: BP_SYST 137; BP_DIAS 64; BP_DIAS 81
[2019-11-07] MEDS: MINERAL OIL ENEMA 133ML PR PRN (08:24)
[2019-11-07] MEDS: FUROSEMIDE 40MG TABLET PO SCH (09:17)
[2019-11-07] MEDS: COBICISTAT PO SCH (09:17)
[2019-11-07] MEDS: DOCUSATE SODIUM 100MG CAPSULE PO SCH (09:17)
[2019-11-07] MEDS: TENOFOVIR PO SCH (09:17)
[2019-11-07] MEDS: EMTRICITABINE PO SCH (09:17)
[2019-11-07] MEDS: HYDROCHLOROTHIAZIDE 12.5MG CAPSULE PO SCH (09:17)
[2019-11-07] MEDS: GENVOYA PO SCH (09:17)
[2019-11-07] MEDS ORDERED: OXYC-662 MT ×2 (10:31→11:46)
[2019-11-07 10:53] VITALS: BP 137/64
== END 2019-11-07 11:02 | disposition home health service (06) | DRG 304 ==
LOC: ER 10:10 → ENRESERV 18:17 → 6WST 20:27 → 5EST 10-31 16:20 → MICUSO 10-31 22:30 → 6EST 11-01 14:40
PROVIDERS: ADMIT Internal Medicine; ATTEND Internal Medicine
PROC: 0SG1071 Fusion of 2 or more Lumbar Vertebral Joints with Autologous Tissue Substitute, Posterior Approach, Posterior Column, Open Approach (ICD-10-PCS; principal; 2019-10-31)
PROC: 0SG3071 Fusion of Lumbosacral Joint with Autologous Tissue Substitute, Posterior Approach, Posterior Column, Open Approach (ICD-10-PCS; 2019-10-31)
PROC: 0SB20ZZ Excision of Lumbar Vertebral Disc, Open Approach (ICD-10-PCS; 2019-10-31)
PROC: 0SB40ZZ Excision of Lumbosacral Disc, Open Approach (ICD-10-PCS; 2019-10-31)
PROC: 01NB0ZZ Release Lumbar Nerve, Open Approach (ICD-10-PCS; 2019-10-31)
PROC: 01NR0ZZ Release Sacral Nerve, Open Approach (ICD-10-PCS; 2019-10-31)
DX: M48.061 Spinal stenosis, lumbar region without neurogenic claudication (principal); G82.50 Quadriplegia, unspecified; M47.16 Other spondylosis with myelopathy, lumbar region; M51.06 Intervertebral disc disorders with myelopathy, lumbar region; F17.210 Nicotine dependence, cigarettes, uncomplicated; M47.26 Other spondylosis with radiculopathy, lumbar region; M51.27 Other intervertebral disc displacement, lumbosacral region; M51.16 Intervertebral disc disorders with radiculopathy, lumbar region; I10 Essential (primary) hypertension; K59.00 Constipation, unspecified; M48.07 Spinal stenosis, lumbosacral region; Z79.899 Other long term (current) drug therapy
CPT/HCPCS: 36415; 72100; 72158; 74018; 76000; 80048; 80061; 81003; 83735; 84100; 84443; 88304; 88311; 93005; 93970; 95829; 95863; 95925; 95926; 97110; 97116; 97162; 97166; 97530; 97535; 99285; A9577; C1713; J0690; J1100; J1170; J1200; J2250; J2270; J2370; J2405; J2704; J3010; J3490; J7050; J7121

== ENCOUNTER 2020-05-12 22:42 | Emergency (ER) | payer MEDICAID ==
[~2020-05-12] VITALS: Ht 188 cm; Wt 91.0 kg
[~2020-05-12 22:42] MED LIST changes: +OXYC-662 MT
[2020-05-13] MEDS ORDERED: HYDROCODONE/ACETAMINOPHEN 10/325MG TABLET PO ONE (01:00)
[2020-05-13 01:09] VITALS: BP 140/82
== END 2020-05-13 01:12 | disposition home or self-care (01) ==
LOC: ER 22:42
DX: M54.5 Low back pain (principal); I10 Essential (primary) hypertension; Z98.890 Other specified postprocedural states; Z79.899 Other long term (current) drug therapy
CPT/HCPCS: 72131; 99284

== ENCOUNTER 2021-07-09 21:40 | Emergency (ER) | payer MEDICARE, MEDICAID ==
[~2021-07-09] VITALS: Ht 193 cm; Wt 111.0 kg
[~2021-07-09 21:40] MED LIST changes: +ACYC200C PO; +DOCU100T PO; +DULO60CA44 PO; -FURO-151 MT; +GABA-532 PO; -GABA800T97 MT; -IBUP-1653 PO; -OXYC-662 MT; -TIZA4CAP6 MT; +VIAG100 PO
[2021-07-09] MEDS ORDERED: MORPHINE SULFATE 4 MG/ML CPJ (NOT FOR IM USE) IV ONE (22:45)
[2021-07-09 23:35] LABS: HEMATOCRIT 44.5 % (42.0-52.0); HEMOGLOBIN 14.9 g/dL (14.0-18.0); MEAN CORPUSCULAR HEMOGLOBIN 30.4 pg (28.0-32.0); MEAN CORPUSCULAR VOLUME 90.9 fL (80.0-94.0); PLATELET 438 x1000/uL (130-400); RED CELL DISTRIBUTION WIDTH 14.3 % (11.6-14.6)
[2021-07-09 23:48] LABS: CHLORIDE 106 mEq/L (98-107)
[2021-07-10] MEDS ORDERED: MORPHINE SULFATE 4 MG/ML CPJ (NOT FOR IM USE) IV ONE (05:00)
[2021-07-10] MEDS ORDERED: GADOTERATE MEGLUMINE 5 MMOL/10 ML VIAL IV ONE (05:36)
[2021-07-10] MEDS ORDERED: IBUP-2029 MT (05:53)
[2021-07-10 06:04] VITALS: BP 124/71
== END 2021-07-10 05:57 | disposition home or self-care (01) ==
LOC: ER 21:40
DX: G89.29 Other chronic pain (principal); M54.5 Low back pain; I10 Essential (primary) hypertension; Z88.8 Allergy status to other drugs, medicaments and biological substances; Z79.899 Other long term (current) drug therapy
CPT/HCPCS: 36415; 72157; 72158; 80053; 83605; 84145; 85027; 87040; 96374; 96376; 99285; A9577; J2270

== ENCOUNTER 2021-12-27 18:18 | Emergency (ER) | payer MEDICARE, MEDICAID ==
[~2021-12-27] VITALS: Ht 188 cm; Wt 90.0 kg
[~2021-12-27 18:18] MED LIST changes: -ACYC200C PO; +ACYC200C31 PO; +IBUP-2029 MT
[2021-12-27] MEDS ORDERED: TETANUS, DIPHTHERIA, PERTUSSIS VAC/PF 0.5ML (>10YR OLD) IM ONE (18:45)
[2021-12-27] MEDS ORDERED: IBUPROFEN 400MG TABLET PO ONE (18:45)
[2021-12-27 18:53] VITALS: BP 168/98
[2021-12-27] MEDS ORDERED: IBUP-2028 MT (19:23)
== END 2021-12-27 19:49 | disposition home or self-care (01) ==
LOC: ER 18:18
DX: M79.672 Pain in left foot (principal); M79.671 Pain in right foot; I10 Essential (primary) hypertension; Z98.890 Other specified postprocedural states; Z79.899 Other long term (current) drug therapy
CPT/HCPCS: 90471; 90715; 99283